=== PATIENT | female | born 1975 | race African-American/Black ===

== ENCOUNTER 2020-03-27 09:28 | Emergency (ER) | payer SELFPAY ==
[2020-03-27] MEDS ORDERED: HYDROcodone/Acetaminophen 10/325 mg Tablet ONE (10:08)
--- NOTE | 2020-03-27 10:21 | RAD ---
XR Hip Lt 2-3 View HISTORY: Left hip pain FINDINGS: No fracture or dislocation is identified. No significant arthritic changes are seen.
== END 2020-03-27 11:25 | disposition home or self-care (01) ==
LOC: NAV ERS 09:28
DX: S76.012A Strain of muscle, fascia and tendon of left hip, initial encounter (principal); Z79.899 Other long term (current) drug therapy; X50.1XXA Overexertion from prolonged static or awkward postures, initial encounter

== ENCOUNTER 2020-05-06 10:48 | Emergency (ER) | payer BC ==
[2020-05-07 02:11] LABS: SARS-CoV-2 MS2 Positive; SARS-CoV-2 N Gene Positive; SARS-CoV-2 S Gene Positive; SARS-CoV-2 by NAA DETECTED (NotDetected); SARS-CoV-2 orf1ab Positive
== END 2020-05-06 11:20 | disposition home or self-care (01) ==
LOC: NAV ERS 10:48
DX: U07.1 COVID-19 (principal); J06.9 Acute upper respiratory infection, unspecified
CPT/HCPCS: 87635; U0003